=== PATIENT | male | born 1945 | race Caucasian/White ===

== ENCOUNTER 2021-10-05 12:53 | Inpatient (IN) ==
[2021-10-05 13:44] LABS: ABS Basophils 0.1 10^3/ul (0-0.2); ABS Eosinophils 0.7 10^3/ul (0-0.6); ABS Monocytes 1.3 10^3/ul (0-0.8); ABS Neutrophils 13.6 10^3/ul (1.5-7.7); Eosinophil % 4.1 %; Hematocrit 40 % (42-52); Hemoglobin 13.4 g/dL (14.0-18.0); Lymphocyte % 6.2 %; Mean Corpuscular HGB Conc 33 g/dL (31-36); Mean Corpuscular Hemoglobin 27 pg (27-31); Mean Corpuscular Volume 81 fL (80-94); Mean Platelet Volume 6.5 fL (7.4-10.4); Platelet Count 374 10^3/uL (150-450); Red Blood Count 4.95 10^6 /uL (4.18-5.48); Red Cell Distribution Width 16 % (10-15); White Blood Count 16.8 10^3/uL (3.5-10.8)
[2021-10-05] MEDS ORDERED: NS 0.9% 1000 ml BAG 1,000 ML IV SCH (14:00)
[2021-10-05] MEDS ORDERED: Dexamethasone IV 4 MG/ML VIAL 1 ml VIAL IV SLOW PU ONE (14:00)
[2021-10-05 14:08] LABS: Activated Partial Thrombo Time 29.9 seconds (26.0-38.0); INR 1.25 (0.89-1.11)
[2021-10-05] MEDS ORDERED: NS 0.9% 1000 ml BAG 1,000 ML IV ONE (14:12)
[2021-10-05 14:30] LABS: Albumin 3.9 g/dL (3.2-5.2); Albumin/Globulin Ratio 1.1 (1-3); Calcium 9.4 mg/dL (8.6-10.3); Globulin 3.6 g/dL (2-4); Potassium 3.8 mmol/L (3.5-5.0); Total Bilirubin 0.9 mg/dL (0.2-1.0); Total Protein 7.5 g/dL (6.4-8.9); eGFR CKD-EPI 67.1 (>60)
[2021-10-05] MEDS ORDERED: Gadoteridol (CONTRAST) 279.3 MG/ML 10 ML IV ONE (15:54)
[2021-10-05] MEDS ORDERED: Enoxaparin 40 MG/0.4 ML SYR SUBCUT SCH (16:00)
[2021-10-05] MEDS ORDERED: Iohexol 350 (CONTRAST) 500 ML MDV IV ONE (16:37)
[2021-10-05] MEDS: Dexamethasone IV 4 MG/ML VIAL 1 ml VIAL IV SLOW PU SCH ×2 (18:32→23:49)
[2021-10-06] MEDS: Dexamethasone IV 4 MG/ML VIAL 1 ml VIAL IV SLOW PU SCH ×4 (03:07→21:16)
[2021-10-06 07:23] LABS: Urine Appearance Clear; Urine Bilirubin Negative (Negative); Urine Blood Negative (Negative); Urine Color Yellow; Urine Glucose Negative (Negative); Urine Ketones Negative (Negative); Urine Nitrite Negative (Negative); Urine Protein Negative (Negative); Urine Specific Gravity 1.015 (1.005-1.030); Urine Urobilinogen 0.2 (Negative) (Negative); Urine pH 5.5 (5.0-9.0)
[2021-10-06 08:05] LABS: Hematocrit 41 % (42-52); Mean Corpuscular HGB Conc 34 g/dL (31-36); Mean Corpuscular Hemoglobin 27 pg (27-31); Mean Corpuscular Volume 80 fL (80-94); Mean Platelet Volume 6.5 fL (7.4-10.4); Platelet Count 366 10^3/uL (150-450); Red Blood Count 5.13 10^6 /uL (4.18-5.48); Red Cell Distribution Width 16 % (10-15); White Blood Count 13.6 10^3/uL (3.5-10.8)
[2021-10-06] MEDS ORDERED: NS 0.9% 1000 ml BAG 1,000 ML IV SCH (08:45)
[2021-10-06 08:51] LABS: Calcium 9.9 mg/dL (8.6-10.3); Potassium 4.7 mmol/L (3.5-5.0); eGFR CKD-EPI 71.6 (>60)
[2021-10-06] MEDS ORDERED: Dutasteride/Tamsulosin (NF) PO SCH (09:00)
[2021-10-07] MEDS ORDERED: Calcium Carb (TUMS) 500 mg CHEW TAB PO PRN (00:45)
[2021-10-07] MEDS: Dexamethasone IV 4 MG/ML VIAL 1 ml VIAL IV SLOW PU SCH ×2 (05:08→14:26)
[2021-10-07 05:29] LABS: Hematocrit 39 % (42-52); Hemoglobin 12.5 g/dL (14.0-18.0); Mean Corpuscular HGB Conc 32 g/dL (31-36); Mean Corpuscular Hemoglobin 25 pg (27-31); Mean Corpuscular Volume 80 fL (80-94); Mean Platelet Volume 6.9 fL (7.4-10.4); Platelet Count 327 10^3/uL (150-450); Red Blood Count 4.89 10^6 /uL (4.18-5.48); Red Cell Distribution Width 17 % (10-15); White Blood Count 23.8 10^3/uL (3.5-10.8)
[2021-10-07 05:35] LABS: INR 1.24 (0.89-1.11)
[2021-10-07 05:50] LABS: Calcium 9.1 mg/dL (8.6-10.3); Potassium 4.9 mmol/L (3.5-5.0); eGFR CKD-EPI 72.4 (>60)
[2021-10-07 08:28] LABS: ABS Basophils 0.1 10^3/ul (0-0.2); ABS Lymphocytes 0.8 10^3/ul (1.0-4.8); ABS Neutrophils 21.9 10^3/ul (1.5-7.7); Eosinophil % 0.2 %; Lymphocyte % 3.2 %
[2021-10-07] MEDS ORDERED: fentaNYL 100 mcg/2 ml 50 MCG/ML VIAL ONE (11:57)
[2021-10-07 16:17] VITALS: BP 124/68
== END 2021-10-07 17:45 | disposition home or self-care (01) | DRG 70 ==
LOC: ED 12:53 → EDHOLD 15:10 → SUATTDRO 15:10 → SSU 22:03 → MEDTELE 10-06 11:50
PROVIDERS: ADMIT Internal Medicine; ATTEND Internal Medicine

== ENCOUNTER 2024-03-12 11:29 | Observation (INO) ==
[~2024-03-12 11:29] MED LIST: Metoclopramide 5 MG/ML VIAL (10 mg) IV PRN; NS 0.45% 1000 ml BAG 1,000 ML IV SCH; Naloxone 0.4 mg VIAL 0.4 mg/ml 1 ml VIAL IV PRN; Ondansetron 4 mg VIAL 2 MG/ML 2 ml VIAL IV PRN; fentaNYL 100 mcg/2 ml 50 MCG/ML VIAL IV PRN
[2024-03-12] MEDS: Scopolamine 1 mg/72hr PATCH TRANSDERM ONE (12:14)
[2024-03-12] MEDS: Lactated Ringers 1000 ml BAG 1,000 ML IV SCH ×2 (12:14→18:45)
[2024-03-12] MEDS: Buffered Lidocaine 1% SYRIN 1 ml INTRADERM ONE (12:14)
[2024-03-12] MEDS ORDERED: Famotidine IV 10 MG/ML 2 ml VIAL (20 mg) ONE (12:21)
[2024-03-12] MEDS ORDERED: D5W 2 GM/100 ML IV ONE (12:21)
[2024-03-12] MEDS ORDERED: CEFTRIAXONE 1 GM/50 ML IV ONE (12:21)
[2024-03-12 12:22] LABS: Rapid COVID-19 Molecular Undetected (Undetected)
[2024-03-12] MEDS: Famotidine IV 10 MG/ML 2 ml VIAL (20 mg) IV SLOW PU ONE (12:38)
[2024-03-12] MEDS ORDERED: Midazolam 2 mg/2 ml VIAL 1 mg/ml 2 ml VIAL (2 mg) ONE (13:21)
[2024-03-12] MEDS ORDERED: Furosemide 20 mg/2 ml IV VIAL ONE (15:20)
[2024-03-12] MEDS ORDERED: Dexamethasone IV 4 MG/ML VIAL 1 ml VIAL ONE (15:34)
[2024-03-12] MEDS: Acetaminophen IV 1 GM/100ML 1,000 MG/100 ML BAG IV ONE (17:46)
[2024-03-12] MEDS: Acetaminophen IV 1 GM/100ML 1,000 MG/100 ML BAG IV PRN (21:00)
[2024-03-13 05:53] LABS: Calcium 9.3 mg/dL (8.6-10.3); Creatinine, Serum 1.03 mg/dL (0.67-1.17); Potassium 5.1 mmol/L (3.5-5.0); eGFR CKD-EPI 74.8 (>60)
[2024-03-13] MEDS: cefTRIAXone 2 gm/50 mL D5W 2 GM/50 ML BAG IV ONE (08:48)
[2024-03-13 09:48] VITALS: BP 138/73
== END 2024-03-13 11:12 | disposition home or self-care (01) ==
LOC: SSU 11:29 → OR 11:29
PROVIDERS: ADMIT Urology; ATTEND Urology